=== PATIENT | female | born 1980 | race Caucasian/White ===

== ENCOUNTER 2019-02-26 21:25 | Emergency (ER) | payer OTHER ==
[2019-02-26 21:38] VITALS: BP 135/95; PULSE 78; TEMP 98.4; BMI 34.7
[2019-02-26] MEDS ORDERED: IBUPROFEN 600 MG TABLET (FP) PO ONE ×2 (22:36→22:38)
[2019-02-26] MEDS ORDERED: AZITHROMYCIN 250 MG TABLET PO ONE (23:18)
[2019-02-26] MEDS ORDERED: AZITHROMYCIN 500 MG TABLET ONE (23:21)
--- NOTE | 2019-02-27 00:28 | PDOC ---
Documentation entered by Alvarez Mckeon SCRIBE, acting as scribe for Pratibha Durán MD. Pratibha Durán MD: This documentation has been prepared by the Mike miranda Daniel, SCRIBE, under my direction and personally reviewed by me in its entirety. I confirm that the documentation accurately reflects all work, treatment, procedures, and medical decision making performed by me. History of Present Illness - General Chief Complaint: Sore Throat Stated Complaint: SORE THROAT History Source: Patient Exam Limitations: No Limitations - History of Present Illness Initial Comments: 02/26/19 22:37 The patient is a 38 year old female with a past medical history of HTN here today for evaluation of throat pain. The patient reports that her throat pain began this morning and notes not being able to swallow and black and white spots on the left side of her throat. She also notes headache and general body aches. Patient denies lightheadedness. Denies fever, chills. Denies chest pain, shortness of breath. Denies nausea, vomiting, diarrhea, abdominal pain. Allergies: iodinated contrast oral and IV dye Social history: Confirms marijuana use. Denies alcohol and tobacco use. PCP: Natalie Prince Past History - Past Medical History Allergies/Adverse Reactions: Allergies Allergy/AdvReac Type Severity Reaction Status Date / Time Iodinated Contrast- Oral and Allergy Unknown Verified 02/26/19 21:34 IV Dye Home Medications: Ambulatory Orders Azithromycin 250 mg PO DAILY #4 tablet 02/26/19 Losartan Potassium [Cozaar -] 50 mg PO DAILY 02/26/19 COPD: No HTN: Yes - Suicide/Smoking/Psychosocial Hx Smoking History: Never smoked Hx Alcohol Use: Yes (SOCIAL) Drug/Substance Use Hx: No Review of Systems - Review of Systems Able to Perform ROS?: Yes Comments:: 02/26/19 22:37 All systems are reviewed and negative except as noted in the HPI *Physical Exam - Vital Signs Last Vital Signs Temp Pulse Resp BP Pulse Ox 98.4 F 78 15 135/95 100 02/26/19 21:33 02/26/19 21:33 02/26/19 21:33 02/26/19 21:33 02/26/19 21:33 - Physical Exam Comments: 02/26/19 22:38 GENERAL: Awake, alert, and fully oriented, in no acute distress HEAD: No signs of trauma EYES: PERRLA, EOMI, sclera anicteric, conjunctiva clear ENT: +erythematous edematous left tonsil with purulent discharge, no abscess noted. +bilateral tender moderately enlarged anterior cervical lymph nodes. Auricles normal inspection, hearing grossly normal, nares patent. Moist mucosa NECK: Normal ROM, supple, no lymphadenopathy, JVD, or masses LUNGS: Breath sounds equal, clear to auscultation bilaterally. No wheezes, and no crackles HEART: Regular rate and rhythm, normal S1 and S2, no murmurs, rubs or gallops ABDOMEN: Soft, nontender, normoactive bowel sounds. No guarding, no rebound. No masses EXTREMITIES: Normal range of motion, no edema. No clubbing or cyanosis. No cords, erythema, or tenderness NEUROLOGICAL: Cranial nerves II through XII grossly intact. Normal speech, normal gait SKIN: Warm, Dry, normal turgor, no rashes or lesions noted. ED Treatment Course - Medications Given in the ED: ED Medications Discontinued Medications Generic Name Dose Route Start Last Admin Trade Name Freq PRN Reason Stop Dose Admin Ibuprofen 600 mg 02/26/19 22:36 02/26/19 22:39 Motrin - PO 02/26/19 22:37 600 mg ONCE ONE Administration Medical Decision Making - Medical Decision Making As noted above, this 38-year-old woman with a history of HTN but no other significant past medical history and no history of known exposure to strep pharyngitis presents with a few day history of sore throat. Exam reveals purulent patch on a swollen, erythematous left tonsil. She also has bilateral tender, enlarged anterior cervical lymph nodes. No other abnormalities found. Quick strep is negative and throat culture is pending. Because of the presence of gross exudate and edema of the left tonsil, patient will be started on azithromycin ([id number]) with first dose of azithromycin 500 mg being given here in the emergency room. Remainder of the course of azithromycin 250 mg daily for 4 days will be sent to her pharmacy. *DC/Admit/Observation/Transfer Diagnosis at time of Disposition: Acute tonsillitis Qualifiers: Pharyngitis/tonsillitis etiology: other specified organisms Qualified Code(s): J03.80 - Acute tonsillitis due to other specified organisms; J03.8 - Acute tonsillitis due to other specified organisms - Discharge Dispostion Disposition: HOME Condition at time of disposition: Stable - Prescriptions Prescriptions: Azithromycin 250 mg PO DAILY #4 tablet - Referrals Referrals: Natalie Prince [Primary Care Provider] - - Patient Instructions Printed Discharge Instructions: DI for Pharyngitis/Tonsillopharyngitis -- Adult Additional Instructions: Rest; drink plenty of fluids Azithromycin 250 mg daily for the next 4 days; next dose tomorrow (Thursday) Motrin/Aleve/Tylenol as needed for pain Follow-up with your general medical doctor within the next 5 days Return to ER if you have severe pain/difficulty swallowing/persistent high fever - Post Discharge Activity
== END 2019-02-26 23:25 | disposition home or self-care (01) ==
LOC: FER 21:25
DX: J03.80 Acute tonsillitis due to other specified organisms (principal); I10 Essential (primary) hypertension
CPT/HCPCS: 87070; 87880; 99281-25

== ENCOUNTER 2019-03-17 18:28 | Emergency (ER) | payer OTHER | END 2019-03-17 19:55 | disposition home or self-care (01) | LOC: FER 18:28 ==